=== PATIENT | female | born 1970 | race Asian ===

== ENCOUNTER 2016-09-03 06:06 | Day surgery (SDC) | payer OTHER ==
[~2016-09-03] VITALS: Ht 167.6 cm; Wt 48.5 kg
[2016-09-03] MEDS ORDERED: PROPOFOL 200 MG/20 ML VIAL IV ONE (07:44)
[2016-09-03] MEDS ORDERED: ONDANSETRON 4 MG/2 ML VIAL IVP ONE (07:44)
[2016-09-03] MEDS ORDERED: KETOROLAC 30 MG/ML VIAL IVP ONE (07:44)
[2016-09-03] MEDS ORDERED: SEVOFLURANE 250 ML BTL INH ONE (07:44)
[2016-09-03] MEDS ORDERED: ONDANSETRON 4 MG/2 ML VIAL IVP PRN ×2 (07:45→07:55)
[2016-09-03] MEDS ORDERED: HYDROmorphone 1 MG/ML AMP IVP PRN (07:45)
[2016-09-03] MEDS ORDERED: fentaNYL 0.05 MG/ML VIAL ONE (07:54)
[2016-09-03] MEDS ORDERED: ACETAMINOPHEN/CODEINE 300/30MG 1 TAB PO PRN (07:55)
[2016-09-03] MEDS ORDERED: IBUPROFEN 800 MG TAB PO PRN (07:55)
[2016-09-03] MEDS ORDERED: MORPHINE SULFATE 4 MG/ML SYR IM/IVP PRN (07:55)
== END 2016-09-03 09:45 | disposition home or self-care (01) ==
LOC: MDS 06:06 → MMU 06:07 → MDS 09:45
PROVIDERS: ATTEND Obstetrics & Gynecology
DX: Z30.432 Encounter for removal of intrauterine contraceptive device (principal); K21.9 Gastro-esophageal reflux disease without esophagitis
CPT/HCPCS: 58301; J1885; J2405; J2704; J3010; J7120